=== PATIENT | male | born 1990 | race Caucasian/White ===

== ENCOUNTER 2021-02-18 17:33 | Outpatient (CLI) | payer BC, SELFPAY ==
--- NOTE | 2021-02-18 | DI.RAD_ITS ---
Exam(s) XR FINGER RT RING EXAM: XR FINGER RT RING CLINICAL HISTORY: FINGER PAIN RT. TECHNIQUE: 2D digital imaging was performed. COMPARISON: No exams were available for comparison FINDINGS: BONES: There is a fracture at the dorsal plate of the distal phalanx of the ring finger. Approximate ly 1/2 of the articular surface is involved. There is mild separation of the fracture fragment. No bony destructive lesion is seen. JOINTS: No dislocation present. Mild hyperextension at the PIP joint. Mild flexion at the DIP joint . SOFT TISSUE: Swelling around distal interphalangeal joint. IMPRESSION: Fracture at the dorsal plate of the distal phalanx of the 4th finger. DATA REPOSITORY: RADIATION DOSE DELIVERED:
--- NOTE | 2021-02-18 18:29 | DI.VRAD_ITS ---
PROCEDURE INFORMATION: Exam: XR Right Finger(s) Exam date and time: 02/18/2021 5:39 PM Age: 30 years old Clinical indication: Other: RT finger pain TECHNIQUE: Imaging protocol: XR Right fingers. Views: Minimum 2 views. COMPARISON: No relevant prior studies available. FINDINGS: Bones/joints: There is a displaced avulsion fracture at the dorsal base of the distal phalanx of the 4th digit at the DIP joint. Soft tissues: Unremarkable. IMPRESSION: Displaced avulsion fracture of the dorsal base of the distal phalanx of the 4th digit, compatible with mallet finger avulsion fracture. Dictated and Authenticated by: Matthew Blair MD. Ordering:KEITH Pineda MD
== END 2021-02-18 17:53 ==
PROVIDERS: PCP Physician Assistant; Visit Provider Physician Assistant Medical
DX: M79.644 Pain in right finger(s) (principal); S62.634A Displaced fracture of distal phalanx of right ring finger, initial encounter for closed fracture
CPT/HCPCS: 73140